=== PATIENT | female | born 1970 | race Caucasian/White ===

== ENCOUNTER 2016-07-19 07:23 | Observation (INO) | payer OTHER ==
[2016-07-16 16:18] LABS: BASOPHILS 0.9 %; BASOPHILS ABSOLUTE 0.05 10/3/uL (0.0-0.16); EOSINOPHILS 3.3 %; EOSINOPHILS ABSOLUTE 0.18 10/3/uL (0.0-0.53); HEMATOCRIT 36.6 % (36.0-48.0); HEMOGLOBIN 12.1 g/dL (12.0-16.0); IMMATURE GRANULOCYTES 0.2 %; IMMATURE GRANULOCYTES ABSOLUTE 0.01 10/3/uL (0.0-0.11); LYMPHOCYTES 36.5 %; LYMPHOCYTES ABSOLUTE 2.02 10/3/uL (0.67-4.30); MEAN CORPUSCULAR VOLUME 90.8 fL (80-100); MEAN PLATELET VOLUME 9.8 fL (9.2-13.0); MONOCYTES 4.9 %; MONOCYTES ABSOLUTE 0.27 10/3/uL (0.21-1.20); NEUTROPHILS 54.2 %; PLATELET COUNT 275 10/3/uL (150-400); RBC DISTRIBUTION WIDTH 12.8 % (12.0-16.0); RED CELL COUNT 4.03 10/6/uL (4.0-5.6); WHITE BLOOD CELLS 5.5 10/3/uL (4.5-10.5)
[2016-07-16 16:20] LABS: MANUAL DIFF NO %; MEAN CORPUS HGB CONC 33.1 g/dL (32.0-36.0)
[2016-07-16 16:33] LABS: BUN (BLOOD UREA NITROGEN) 11 MG/DL (6-23); CALCIUM, SERUM 8.5 MG/DL (8.5-10.4); CHLORIDE, SERUM 106 MMOL/L (96-112); CO2 (CARBON DIOXIDE) 30 MMOL/L (24-34); CREATININE 0.87 MG/DL (0.55-1.02); GFR AFRICAN AMERICAN 93 ML/MIN (>=60); GFR NON AFRICAN AMERICAN 80 ML/MIN (>=60); GLUCOSE, SERUM 88 MG/DL (60-99); POTASSIUM, SERUM 3.6 MMOL/L (3.5-5.3); SODIUM, SERUM 143 MMOL/L (135-148)
--- NOTE | ~2016-07-19 | OP ---
Record Of Operation [facility] [address] [place]. [address] NAME: DIANA REAVES : 70 STATUS : ADM Jessica PAT#: [id number] AGE: 46 ADM/REG DATE : 07/19/16 MR#: [id number] REPORT SERV DATE: 07/20/16 DICTATED BY: AYDIN OLSEN DATE: 07/20/16 REPORT STATUS : Draft TRANSCRIBED BY: MODL DATE: 07/20/16 DATE OF PROCEDURE: 07/20/2016 PREOPERATIVE DIAGNOSIS: Tracheal defect with subcutaneous emphysema. POSTOPERATIVE DIAGNOSIS: Tracheal defect with subcutaneous emphysema. PROCEDURE: Neck exploration with repair of the tracheal defect. SURGEON: Aydin Olsen M.D. ANESTHESIA: General endotracheal. ESTIMATED BLOOD LOSS: 50 mL. INTRAOPERATIVE FLUIDS: 1200 mL of crystalloid. INTRAOPERATIVE FINDINGS: Small mucosal defect, measuring approximately 1.5 mm in diameter involving the membranous trachea, adjacent to the right posterior aspect of the first tracheal ring. The defect was closed with simple 5-0 chromic suture, taking care to avoid injury to the right recurrent laryngeal nerve. Surgisis was also placed to bolster the defect along with a muscle flap from the sternohyoid muscle. OPERATIVE PROCEDURE: The patient was identified in the holding room, transported to the operating room. In the operating room, the patient was placed on the operating table in the supine position. Following induction anesthesia, the patient was intubated without difficulty. The patient was intubated with an endotracheal tube to accommodate the NIM-2 stimulator. The patient was prepped and draped in a sterile fashion. The incision was opened from the operative site from her right thyroid lobectomy. Upon exposing the subplatysmal layer. It was evident that there was a large amount of blood clot in this area which was evacuated. There was, however, no significant air identified within the neck. There was a small bleeder identified on the anterior surface of the strap muscles which was cauterized with the use of the bipolar cautery. The 3-0 Vicryl sutures approximating the strap muscles were then removed. There was no significant blood clot identified deep to the strap muscles. The right recurrent laryngeal nerve was identified. There was a fibrinous exudate overlying the nerve which was carefully removed, as the nerve was dissected to its entry point into the larynx. On rotating the trachea to the left side, a small defect was noted in the membranous trachea, as noted above. Two simple 5-0 chromic sutures were placed to approximate the mucosa. Evicel was then applied to the surface of the mucosal closure. A small piece of Surgisis was then placed over the trachea mucosal defect and secured with 5 0 chromic suture. Additional Evicel was placed and a larger piece of Surgisis was then placed over the smaller portion of Surgisis intact to the cricoid cartilage, trachea, as well as a very superficial suture placed, placed into the musculature of the esophagus. A strip of muscle from the medial aspect of the sternohyoid muscle was then dissected and left attached superiorly. This flap was then rotated into the trachea esophageal groove and sutured to the muscular layer of the esophagus and trachea with 5-0 chromic suture. A small Record Of Operation [facility] [address] [facility] [place]. [address] NAME: DIANA REAVES : 70 STATUS : ADM Jessica PAT#: [id number] AGE: 46 ADM/REG DATE : 07/19/16 MR#: [id number] REPORT SERV DATE: 07/20/16 DICTATED BY: AYDIN OLSEN DATE: 07/20/16 REPORT STATUS : Draft TRANSCRIBED BY: MARGARET DATE: 07/20/16 round drain was then placed to the neck. Examination of the neck revealed no bleeding source. The strap muscles were reapproximated in the midline with interrupted 3-0 Vicryl suture. Similar suture material was used to approximate the platysma muscle. The skin incision was closed with a running 5-0 Monocryl suture placed in a subcuticular fashion. Steri-Strips were applied to the wound. The patient was subsequently awakened from anesthesia, extubated in the room, and transported to recovery room in good condition. The patient tolerated the procedure well. There were no apparent complications. There were no specimens. STEWART/MARGARET Aydin Olsen M.D. / [id number] CC: Aydin Olsen M.D.
--- NOTE | ~2016-07-19 | OP ---
Record Of Operation [facility] [address] [place]. 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 PROCEDURE: Right thyroid lobectomy. SURGEON: Aydin Olsen M.D. INNER TUBE CUTTER: Dr. Murray. ESTIMATED BLOOD LOSS: 5 mL. INTRAOPERATIVE FLUIDS: 850 mL crystalloid. INTRAOPERATIVE FINDINGS: The mid diminutive right lobe of the thyroid gland with nodule in the mid to lower portion of the thyroid gland, measuring approximately 1 cm in diameter. A frozen section was obtained on this nodule for which findings suspicious for a follicular variant of papillary thyroid carcinoma were present; however, on frozen section, a more definitive histologic diagnosis could not be established. OPERATIVE PROCEDURE: The patient was identified in the holding room, transported to the operating room. In the operating room, the patient was placed on the operating room table in the supine position. Following induction of anesthesia, the patient was intubated without difficulty. The patient was intubated with an endotracheal tube to accommodate the NIM-2 stimulator. A proposed incision was diagrammed in the lower neck skin crease in a horizontal fashion. The patient was prepped and draped in preparation for her thyroid surgery. An incision was created through the incision in the neck in the aforementioned area. Dissection was carried down to the level of the platysma muscle. The platysma muscle was sharply divided. Superior and inferior subplatysmal flaps were developed. The superior flap was extended superiorly above the level of the cricoid cartilage. The strap muscles were in the midline and retracted laterally to expose the thyroid gland. The right inferior parathyroid gland was identified below the inferior pole of the right lobe of the thyroid gland. This nodule was dissected free from the surrounding tissue and retained on its kar[place] blood supply. Dissecting along the lateral wall of the trachea to the tracheoesophageal groove, the recurrent laryngeal nerve was identified. The nerve was traced superiorly to the inferior edge of the thyroid gland. The superior thyroid pedicle was identified and suture ligated. The thyroid gland was rotated medially as the recurrent laryngeal nerve was traced superiorly to its entry point into the larynx. In the course of performing this dissection, the right superior parathyroid gland was identified and, once Record Of Operation [facility] [address] [place]. [address] NAME: DIANA REAVES : 70 STATUS : [place] [facility] PAT#: [id number] AGE: 46 ADM/REG DATE : 07/19/16 MR#: [id number] REPORT SERV DATE: 07/19/16 DICTATED BY: AYDIN OLSEN DATE: 07/19/16 REPORT STATUS : Draft TRANSCRIBED BY: MODBaltazar DATE: 07/19/16 again, preserved on its kar[place] blood supply. The patient did have an extremely diminutive thyroid gland which was densely adherent to the surrounding tissues, particularly the anterior wall of the trachea. The thyroid gland was carefully dissected from the trachea with dissection of dolan's ligament, as well as the broad ligament. The recurrent laryngeal nerve was preserved throughout the dissection. The dissection was carried across the midline, and the thyroid gland was divided between the thyroid isthmus, and left lobe of the thyroid gland. The right lobe of the thyroid gland and thyroid isthmus was then sent to Surgical pathology for histologic evaluation. Stimulation of the right recurrent laryngeal nerve resulted in excellent contraction of the laryngeal musculature. Hemostasis was achieved with the use of the bipolar cautery. The recurrent laryngeal nerve was once again stimulated with the NIM-2 stimulator and did, once again, demonstrated excellent contractility of the laryngeal musculature. With no significant bleeding identified, I opted not to place in a neck drain. Surgiflo was placed into the operative bed. The strap muscles were reapproximated in the midline with interrupted 3-0 Vicryl suture. Similar suture material was used to approximate the platysma layer. A running 5-0 Monocryl suture was placed in a subcuticular fashion for skin closure. Steri-Strips were applied to the wound. Prior to departure from the operating room, the pathologist did confirm the above findings. Notably, the findings were suspicious for a follicular variant of papillary thyroid carcinoma; however, this could not be established on frozen section and would await final determination on permanent histology. The patient was subsequently awakened from anesthesia, extubated in the operating room, transported to recovery room in good condition. The patient tolerated the procedure well. There were no apparent complications. SPECIMENS: Include right lobe of the thyroid gland with thyroid isthmus. STEWART/MARGARET Aydin Olsen M.D. / [id number]
[~2016-07-19 07:23] MED LIST: BEN25 PO; ESTRACE1 MG PO; ESTRADIOL2 MG PO; MERIBIN5 MG PO; PRILOSEC40 MG PO; PROBIOTIC PO; PROMETRIUM PO; SYN.05 PO; VITAMIN D1000 UNI1 PO; WELLXL150 PO; ZANTAC 150 PO
[2016-07-19 10:06] LABS: PTH (INTRAOPERATIVE) 39.7 PG/ML (10.0-65.0); PTH TAT 0 Hrs 21 Mins
== END 2016-07-21 13:11 | disposition home or self-care (01) ==
LOC: SDC 07:23 → 4SO 18:59
PROVIDERS: Otolaryngology
PROC: 0GTH0ZZ Resection of Right Thyroid Gland Lobe, Open Approach (ICD-10-PCS; principal; 2016-07-19 08:30)
PROC: 0BQ10ZZ Repair Trachea, Open Approach (ICD-10-PCS; 2016-07-20)
DX: D34 Benign neoplasm of thyroid gland (principal); J39.8 Other specified diseases of upper respiratory tract; J98.2 Interstitial emphysema; J45.909 Unspecified asthma, uncomplicated; F41.9 Anxiety disorder, unspecified; F32.9 Major depressive disorder, single episode, unspecified; K21.9 Gastro-esophageal reflux disease without esophagitis; E89.0 Postprocedural hypothyroidism; D64.9 Anemia, unspecified; Z79.899 Other long term (current) drug therapy; Z98.890 Other specified postprocedural states
CPT/HCPCS: 80048; 83970; 85025; 88307; 88331; 88342; 94640; 96374; A9270-GY; C1781; G0378; J0295; J0330; J0690; J2250; J2270; J2405; J2550; J2710; J3010